=== PATIENT | male | born 1945 | race Caucasian/White ===

== ENCOUNTER 2021-07-08 07:38 | Day surgery (SDC) | payer OTHER ==
[~2021-07-08] VITALS: Ht 172.7 cm; Wt 74.5 kg
[~2021-07-08 07:38] MED LIST: ACET500 PO; ALBU90OI INH; Amitriptyline H10 MG PO; FLONASE ALLERG9.9 M2; GABA300 PO; Norco 10-325 T1 EACH PO; OMEP20ER PO; PRAV20 PO; REFRESH TEARS BOTHEYES; Restasis1 EACH BOTHEYES; TAMS.4ER PO; TIZA4 PO
[2021-07-08] MEDS ORDERED: DOXY100 PO (08:31)
--- NOTE | 2021-07-08 08:41 | NUR ---
Ambulatory in Day Surgery. History, Chart, Medications and Allergies reviewed before start of procedure. Lungs clear T/O to Auscultation.
[2021-07-08] MEDS ORDERED: ASPI81CH PO (15:36)
[2021-07-08] MEDS ORDERED: Percocet 5-3251 EACH PO (15:36)
--- NOTE | 2021-07-08 18:38 | NUR ---
DISCHARGE NOTE: PT CLEARED THERAPY AND AMBULATED WELL. PAIN WELL MANAGED. EATING, DRINKING, VOIDING. PT GIVEN DISCHARGE PACKET, SCRIPTS, DRESSINGS, POLAR PACK, AND INSTRUCTIONS. JOSSELYN PRESENT WITH PATIENT HE WAS WHEELED OUT BY WHEELCHAIR TO A PRIVATE VEHICLE.
== END 2021-07-08 18:35 | disposition home or self-care (01) ==
LOC: ORSCMMR 07:38 → ORD 09:45 → ORSCMMR 09:45 → SURS 12:48 → ORSCMMR 18:35 → SURS 18:35
PROVIDERS: Orthopaedic Surgery
PROC: 0SRD0JA Replacement of Left Knee Joint with Synthetic Substitute, Uncemented, Open Approach (ICD-10-PCS; principal; 2021-07-08 09:15)
PROC: 8E0Y0CZ Robotic Assisted Procedure of Lower Extremity, Open Approach (ICD-10-PCS; principal; 2021-07-08 09:15)
DX: M17.0 Bilateral primary osteoarthritis of knee (principal); Z87.891 Personal history of nicotine dependence; I10 Essential (primary) hypertension; E78.5 Hyperlipidemia, unspecified; J45.909 Unspecified asthma, uncomplicated; K21.9 Gastro-esophageal reflux disease without esophagitis; B19.20 Unspecified viral hepatitis C without hepatic coma; Z85.46 Personal history of malignant neoplasm of prostate; Z79.899 Other long term (current) drug therapy
CPT/HCPCS: 27447; S2900; 73560-LT; 97110; 97116; 97162; A9270; C1776; J0171; J0690; J0735; J1100; J1885; J2250; J2370; J2405; J2704; J2795; J3010; J7120

== ENCOUNTER 2022-07-03 06:22 | Day surgery (SDC) | payer OTHER ==
[~2022-07-03] VITALS: Ht 172.7 cm; Wt 70.9 kg
[~2022-07-03 06:22] MED LIST changes: +ASPI81CH PO; +DOXY100 PO; +Percocet 5-3251 EACH PO
[2022-07-03 06:58] VITALS: BP 110/86
--- NOTE | 2022-07-03 07:09 | NUR ---
History, Chart, Medications and Allergies reviewed before start of procedure. Lungs clear T/O to Auscultation. Patient confirms NPO status and agrees with scheduled surgery. Patient states colon prep results clear. Pre-Op teaching done. Pt verbalizes understanding.
--- NOTE | 2022-07-03 08:13 | NUR ---
07/03/22 0813 Luz Elena Mccracken WITH DR. CARL, SEE ANESTHESIA RECORDS.
[2022-07-03 08:52] VITALS: BP 97/66
--- NOTE | 2022-07-03 08:56 | NUR ---
REPORT RECEIVED FROM ANA RDZ RN. PT ABLE TO REPOSITION SELF IN BED. PT REQUESTING PO FLUIDS AND TOLERATING THEM WELL. PT DENIES PAIN OR DISCOMFORT AT THIS TIME.
[2022-07-03 09:04] VITALS: BP 98/65
[2022-07-03 09:10] VITALS: BP 101/73
--- NOTE | 2022-07-03 09:16 | NUR ---
Patient up to Ambulate independently. Gait steady. Discharge instructions reviewed with patient. Patient verbalizes understanding. Copy given to patient to take home. Patient States Post-Procedure ride home has been arranged. Discharged via wheelchair to private car for ride home. PT BELONGINGS RETURNED TO PT.
== END 2022-07-03 22:52 | disposition home or self-care (01) ==
LOC: ORSCMMR 06:22 → ORD 08:00 → ORSCMMR 08:00
PROVIDERS: Student in an Organized Health Care Education/Training Program
PROC: 0DBL8ZX Excision of Transverse Colon, Via Natural or Artificial Opening Endoscopic, Diagnostic (ICD-10-PCS; principal; 2022-07-03 08:00)
PROC: 0DBN8ZX Excision of Sigmoid Colon, Via Natural or Artificial Opening Endoscopic, Diagnostic (ICD-10-PCS; principal; 2022-07-03 08:00)
DX: K62.5 Hemorrhage of anus and rectum (principal); D12.3 Benign neoplasm of transverse colon; K63.5 Polyp of colon; K62.7 Radiation proctitis; I10 Essential (primary) hypertension; F43.10 Post-traumatic stress disorder, unspecified; Z79.899 Other long term (current) drug therapy
CPT/HCPCS: 88305; J2250; J2704; J7120

== ENCOUNTER 2022-07-13 11:14 | Day surgery (SDC) | payer OTHER ==
[~2022-07-13] VITALS: Ht 172.7 cm; Wt 70.8 kg
[2022-07-13] MEDS ORDERED: Calcium Carbon500 MG (11:33)
[2022-07-13] MEDS ORDERED: Vitamin C100 M1 (11:34)
[2022-07-13] MEDS ORDERED: VITAMIN B125000 MC1 (11:34)
[2022-07-13] MEDS ORDERED: ERGO400 (11:34)
[2022-07-13] MEDS ORDERED: BENEFIBER236 G1 (11:34)
--- NOTE | 2022-07-13 14:02 | NUR ---
07/13/22 1402 ROBBIE MAURICIO 1mg VERSED IVPB 1X PER MARCO DOUGLAS 4% ATOMIZER END NOTE.ORSCRDS
[2022-07-13 14:06] VITALS: BP 101/70
== END 2022-07-13 14:04 | disposition home or self-care (01) ==
LOC: ORSCSDS 11:14
PROVIDERS: Student in an Organized Health Care Education/Training Program
PROC: 0W3P8ZZ Control Bleeding in Gastrointestinal Tract, Via Natural or Artificial Opening Endoscopic (ICD-10-PCS; principal; 2022-07-13 14:00)
PROC: 0DB98ZX Excision of Duodenum, Via Natural or Artificial Opening Endoscopic, Diagnostic (ICD-10-PCS; principal; 2022-07-13 14:00)
PROC: 0DB78ZX Excision of Stomach, Pylorus, Via Natural or Artificial Opening Endoscopic, Diagnostic (ICD-10-PCS; principal; 2022-07-13 14:00)
DX: R10.13 Epigastric pain (principal); K62.5 Hemorrhage of anus and rectum; K62.7 Radiation proctitis; K29.70 Gastritis, unspecified, without bleeding; K21.9 Gastro-esophageal reflux disease without esophagitis; I10 Essential (primary) hypertension; Z79.899 Other long term (current) drug therapy
CPT/HCPCS: 88305; 88342; A9270; J0330; J0461; J2001; J2250; J2405; J2704; J7120; Q9968

== ENCOUNTER 2022-11-01 16:54 | Emergency (ER) | payer OTHER ==
[~2022-11-01] VITALS: Ht 172.7 cm; Wt 72.6 kg
[~2022-11-01 16:54] MED LIST changes: +BENEFIBER236 G1; +Calcium Carbon500 MG; +ERGO400; +VITAMIN B125000 MC1; +Vitamin C100 M1
[2022-11-01 17:28] VITALS: BP 157/84
== END 2022-11-01 19:42 | disposition home or self-care (01) ==
LOC: ER 16:54
DX: S60.552A Superficial foreign body of left hand, initial encounter (principal); W45.8XXA Other foreign body or object entering through skin, initial encounter; Z88.8 Allergy status to other drugs, medicaments and biological substances; Z79.899 Other long term (current) drug therapy; J45.909 Unspecified asthma, uncomplicated
CPT/HCPCS: 10120; 73120; 99283-25